=== PATIENT | female | born 1970 | race Caucasian/White ===

== ENCOUNTER → 2018-12-04 20:06 | Outpatient (REF) | payer MEDICARE, MEDICAID, SELFPAY | LOC: LAB 20:06 | PROVIDERS: Visit Provider Physician Assistant Medical | DX: S81.802A Unspecified open wound, left lower leg, initial encounter (principal) | CPT/HCPCS: 87070; 87075; 87077; 87147; 87186; 87205 ==

== ENCOUNTER → 2018-12-20 14:43 | Outpatient (CLI) | payer MEDICARE, MEDICAID, SELFPAY | PROVIDERS: Visit Provider Family Medicine | DX: M25.60 Stiffness of unspecified joint, not elsewhere classified (principal); R21 Rash and other nonspecific skin eruption; R23.1 Pallor; R53.83 Other fatigue | CPT/HCPCS: 36415; 80053; 85025; 85651; 86038; 86140; 86430; 87070; 87075; 87205; 97597 ==

== ENCOUNTER → 2018-12-20 16:18 | Outpatient (CLI) | payer MEDICARE, MEDICAID, SELFPAY ==
[2018-12-20 17:04] LABS: Add Manual Diff / Slide Review NO; Basophils Absolute Auto 100 /uL (0-100); Basophils Percent Auto 0.9 % (0-2); Eosinophils Absolute Auto 500 /uL (0-450); Eosinophils Percent Auto 7.2 % (2-4); Hematocrit 36.7 % (36-46); Hemoglobin 12.3 g/dL (12.0-16.0); Lymphocytes Absolute Auto 1600 /uL (1100-4500); Lymphocytes Percent Auto 23.5 % (25-40); Mean Corpuscular HGB Conc 33.5 % (30-36); Mean Corpuscular Hemoglobin 29.4 PG (26-34); Mean Corpuscular Volume 87.7 fL (80-100); Monocytes Absolute Auto 700 /uL (0-900); Monocytes Percent Auto 10.2 % (3-14); Neutrophils Absolute Auto 4000 /uL (1500-7000); Neutrophils Percent Auto 58.2 % (50-75); Platelet Count 276 X10^3/uL (150-400); Red Blood Cell Count 4.18 X10^6/uL (4.0-5.2); Red Cell Distribution Width 13.5 % (11.6-14.8)
[2018-12-20 17:23] LABS: Alanine Aminotransferase 33 IU/L (9-52); Albumin 4.1 g/dL (3.5-5.0); Albumin Globulin Ratio 1.8 (1.0-2.8); Alkaline Phosphatase 58 U/L (38-126); Aspartate Aminotransferase 23 IU/L (14-36); BUN Creatinine Ratio 21.3 (6-22); Blood Urea Nitrogen 17 mg/dL (7-17); Calcium 9.3 mg/dL (8.4-10.2); Carbon Dioxide 27 mmol/L (22-32); Chloride 102 mmol/L (98-107); Estimated Glomerular Filt Rate > 60.0 mL/min (>60); Globulin 2.3 g/dL (1.7-4.1); Glucose 80 mg/dL (70-100); HEMOLYSIS < 15 (0-50); Potassium 4.1 mmol/L (3.4-5.1); Sodium 137 mmol/L (137-145); Total Protein 6.4 g/dL (6.3-8.2)
[2018-12-20 17:25] LABS: Bilirubin Total < 0.1 mg/dL (0.2-1.3); C-Reactive Protein Quant < 0.5 mg/dL (<1.0); Rheumatoid Factor < 8.6 IU/mL (<12.0)
[2018-12-20 17:40] LABS: Erythrocyte Sedimentation Rate 5 MM/HR (0-20)
[2018-12-22 14:58] LABS: ANA Pattern Speckled; ANA Screen, IFA Positive (Negative); ANA Titer 1:40 titer (<1:40)
== END ==
PROVIDERS: Visit Provider Family Medicine
DX: M25.60 Stiffness of unspecified joint, not elsewhere classified (principal); R21 Rash and other nonspecific skin eruption; R23.1 Pallor; R53.83 Other fatigue
CPT/HCPCS: 36415; 80053; 85025; 85651; 86038; 86140; 86430

== ENCOUNTER → 2018-12-27 13:00 | Outpatient (CLI) | payer MEDICARE, MEDICAID, SELFPAY | PROVIDERS: PCP Family Medicine Geriatric Medicine; Visit Provider Family Medicine | DX: R21 Rash and other nonspecific skin eruption (principal); L03.116 Cellulitis of left lower limb; F15.20 Other stimulant dependence, uncomplicated; R53.83 Other fatigue; F99 Mental disorder, not otherwise specified; R23.1 Pallor; L95.0 Livedoid vasculitis; L20.9 Atopic dermatitis, unspecified | CPT/HCPCS: 99213; 99214 ==

== ENCOUNTER → 2019-01-03 15:25 | Outpatient (CLI) | payer MEDICARE, MEDICAID, SELFPAY | PROVIDERS: PCP Family Medicine Geriatric Medicine; Visit Provider Family Medicine | DX: L03.116 Cellulitis of left lower limb (principal); R21 Rash and other nonspecific skin eruption; F15.20 Other stimulant dependence, uncomplicated; R53.83 Other fatigue; F99 Mental disorder, not otherwise specified | CPT/HCPCS: 11104; 11105; 99213; 99214 ==

== ENCOUNTER → 2019-01-03 15:42 | Outpatient (CLI) | payer MEDICARE, MEDICAID, SELFPAY ==
[2019-01-03 17:59] LABS: RBC Urine None Seen (0-5/HPF); WBC Urine None Seen (0-5/HPF)
[2019-01-03 18:16] LABS: Add Manual Diff / Slide Review NO; Basophils Absolute Auto 100 /uL (0-100); Basophils Percent Auto 0.8 % (0-2); Eosinophils Absolute Auto 0 /uL (0-450); Eosinophils Percent Auto 0.6 % (2-4); Hematocrit 40.1 % (36-46); Hemoglobin 13.6 g/dL (12.0-16.0); Lymphocytes Absolute Auto 1200 /uL (1100-4500); Lymphocytes Percent Auto 16.1 % (25-40); Mean Corpuscular HGB Conc 33.9 % (30-36); Mean Corpuscular Hemoglobin 29.8 PG (26-34); Monocytes Absolute Auto 600 /uL (0-900); Monocytes Percent Auto 7.4 % (3-14); Neutrophils Absolute Auto 5800 /uL (1500-7000); Neutrophils Percent Auto 75.1 % (50-75); Platelet Count 371 X10^3/uL (150-400); Red Blood Cell Count 4.55 X10^6/uL (4.0-5.2); White Blood Cell Count 7.7 X10^3/uL (4.5-11.0)
[2019-01-03 18:20] LABS: Appearance Urine UA CLEAR; Bilirubin Urine UA NEGATIVE (NEGATIVE); Color Urine UA YELLOW; Glucose Urine UA NEGATIVE (Negative); Ketones Urine UA NEGATIVE (NEGATIVE); Leukocyte Esterase Urine UA NEGATIVE (NEGATIVE); Nitrite Urine UA NEGATIVE (Negative); Occult Blood Urine UA NEGATIVE (Negative); Protein Urine UA NEGATIVE (Negative); Specific Gravity Urine UA 1.025 (1.000-1.035); Urobilinogen Urine UA 0.2 E.U./dL (0.2); pH Urine UA 6.5 (4.5-8.0)
[2019-01-03 18:40] LABS: HEMOLYSIS < 15 (0-50); Iron 75 ug/dL (37-170)
[2019-01-03 18:40] LABS: Amorphous Sediment Urine 1+; Bacteria Urine Few (2-10); Culture Indicated Urine Cult Not Indicated; Squamous Epithelial Cell Urine 0-1 /HPF (0-5/HPF)
[2019-01-03 18:52] LABS: Percent Iron Saturation 20 % (15-50); Total Iron Binding Capacity 369 ug/dL (265-497); Transferrin 305 mg/dL (206-381)
[2019-01-03 18:55] LABS: Rheumatoid Factor < 8.6 IU/mL (<12.0)
[2019-01-03 19:12] LABS: Hepatitis B Surface Antigen NEGATIVE s/c (NEGATIVE); Thyroid Stimulating Hormone 0.46 uIU/mL (0.47-4.68)
[2019-01-03 19:17] LABS: Ferritin 19.8 ng/mL (6.27-137)
[2019-01-03 19:30] LABS: Hep C Virus Ab w/Reflex Quant NEGATIVE s/c (NEGATIVE)
[2019-01-04 18:48] LABS: Free T3, Triiodothyronine Free 3.76 pg/mL (2.77-5.27); Free T4, Direct Thyroxine 1.08 ng/dL (0.78-2.19)
[2019-01-08 13:53] LABS: CCP Antibodies IgG/IgA 6
[2019-01-08 22:32] LABS: Albumin 4.4 g/dL (3.8-4.8); Alpha 1 Globulin 0.3 g/dL (0.2-0.3); Alpha 2 Globulin 0.6 g/dL (0.5-0.9); Beta 1 Globulin 0.5 g/dL (0.4-0.6); Gamma Globulin 0.9 g/dL (0.8-1.7)
[2019-01-09 08:18] LABS: B2-Glycoprotein I IgA AB < 9 SAU (< OR = 20); B2-Glycoprotein I IgG AB < 9 SGU (< OR = 20); B2-Glycoprotein I IgM AB 84 SMU (< OR = 20); Cardiolipin Ab IgA < 11 APL; Cardiolipin Ab IgG < 14 GPL; Cardiolipin Ab IgM < 12 MPL; Phos. Serine AB IgM < 25 U/mL
[2019-01-09 19:38] LABS: ANCA Screen Negative (Negative)
[2019-01-14 13:15] LABS: dRVVT Screen 34
== END ==
PROVIDERS: PCP Family Medicine Geriatric Medicine; Visit Provider Family Medicine
DX: R23.1 Pallor (principal); I73.00 Raynaud's syndrome without gangrene; E05.90 Thyrotoxicosis, unspecified without thyrotoxic crisis or storm
CPT/HCPCS: 36415; 81001; 82728; 83540; 83550; 84155; 84165; 84439; 84443; 84481; 85025; 85613; 86021; 86038; 86146; 86147; 86148; 86200; 86430; 86803; 87070; 87075; 87205; 87340

== ENCOUNTER → 2019-01-08 14:11 | Outpatient (CLI) | payer MEDICARE, MEDICAID, SELFPAY ==
[2019-01-12 16:27] LABS: Cold Agglutinins None detected Titer (None detected)
[2019-01-13 20:13] LABS: Cryoglobulin, Qualitative NEGATIVE
== END ==
PROVIDERS: PCP Family Medicine Geriatric Medicine; Visit Provider Family Medicine
DX: R23.1 Pallor (principal); I73.00 Raynaud's syndrome without gangrene
CPT/HCPCS: 82585; 82595; 86157; 87070; 87075; 87077; 87147; 87186; 87205

== ENCOUNTER → 2019-01-08 14:56 | Outpatient (CLI) | payer MEDICARE, MEDICAID, SELFPAY | PROVIDERS: PCP Family Medicine Geriatric Medicine; Visit Provider Family Medicine | DX: L03.116 Cellulitis of left lower limb (principal); R21 Rash and other nonspecific skin eruption; F15.20 Other stimulant dependence, uncomplicated; R53.83 Other fatigue; F99 Mental disorder, not otherwise specified | CPT/HCPCS: 29581; 99213 ==

== ENCOUNTER → 2019-01-10 14:45 | Outpatient (CLI) | payer MEDICARE, MEDICAID, SELFPAY | PROVIDERS: PCP Family Medicine Geriatric Medicine; Visit Provider Family Medicine | DX: L97.821 Non-pressure chronic ulcer of other part of left lower leg limited to breakdown of skin (principal); R21 Rash and other nonspecific skin eruption; L03.116 Cellulitis of left lower limb; B95.61 Methicillin susceptible Staphylococcus aureus infection as the cause of diseases classified elsewhere; F15.20 Other stimulant dependence, uncomplicated; F99 Mental disorder, not otherwise specified | CPT/HCPCS: 29581; 99213 ==

== ENCOUNTER → 2019-01-15 14:17 | Outpatient (CLI) | payer MEDICARE, MEDICAID, SELFPAY | PROVIDERS: PCP Family Medicine Geriatric Medicine; Visit Provider Family Medicine | DX: L30.9 Dermatitis, unspecified (principal); F99 Mental disorder, not otherwise specified; L03.116 Cellulitis of left lower limb; L95.0 Livedoid vasculitis; F15.10 Other stimulant abuse, uncomplicated | CPT/HCPCS: 99213 ==

== ENCOUNTER → 2019-01-22 14:11 | Outpatient (CLI) | payer MEDICARE, MEDICAID, SELFPAY | PROVIDERS: PCP Family Medicine Geriatric Medicine; Visit Provider Family Medicine | DX: L30.9 Dermatitis, unspecified (principal); B95.61 Methicillin susceptible Staphylococcus aureus infection as the cause of diseases classified elsewhere; F15.20 Other stimulant dependence, uncomplicated; F99 Mental disorder, not otherwise specified; R23.1 Pallor | CPT/HCPCS: 99213 ==

== ENCOUNTER 2019-02-14 21:01 | Emergency (ER) | payer MEDICARE, SELFPAY ==
[2019-02-14 21:14] VITALS: BP 147/96; PULSE 122; RESP 22; TEMP 36.9; O2SAT 98
--- NOTE | 2019-02-14 21:29 | ED.EXTPRO ---
HPI - Extremity Problem General Chief complaint: Extremity Problem,Nontraumatic Stated complaint: LEFT LOWER LEG PAIN Time Seen by Provider: 02/14/19 21:29 Source: patient Mode of arrival: ambulatory Limitations: no limitations History of Present Illness HPI Narrative: Patient is a 48-year-old female here for evaluation of skin lesions. Patient states that she has had these skin lesions for several years now. She states she has seen her primary doctor and also wound care and also a air duct mechanic. She states that the account development specialist did multiple autoimmune tests. She states that the air duct mechanic told her that it was ?not a dermatologic problem ?she is also having redness to her left lower extremity however this is not new. She is here because she states that the itching is become very unbearable. She does use a topical steroid cream. She also uses Atarax. She also admits to smoking meth on a daily basis. Related Data Previous Rx's Medication Instructions Recorded fluconazole [Diflucan] 100 mg PO DAILY #3 tab 02/14/19 nystatin 1 applictn TOP TID 7 Days #30 gram 02/14/19 Allergies Allergy/AdvReac Type Severity Reaction Status Date / Time SULFA Allergy Intermediate RASH Uncoded 12/20/17 11:57 Review of Systems Constitutional Denies fever(s) ENT Ears, Nose, Mouth, and Throat: Denies lip swelling and Denies throat swelling Cardiovascular Denies chest pain and Denies dyspnea Respiratory Denies dyspnea Gastrointestinal Gastrointestinal: Denies abdominal pain Musculoskeletal Denies myalgias and Denies arthralgias Integumentary/Breasts Reports bleeding lesions, Reports dry skin, Reports lesions, Reports rash, Reports skin ulcer, Reports sores and Reports wounds Neurologic Denies behavioral changes Psychiatric Denies behavioral changes Hematologic/Lymphatic Denies easy bleeding and Denies easy bruising Allergic/Immunologic Denies urticaria, Denies lip swelling and Denies throat swelling [facility] Medical History Drug abuse (Acute) Social History Smoking Status: Current some day smoker Social History Smoking Status: Current some day smoker Exam Initial Vital Signs Initial Vital Signs: Vital Signs Temperature 98.4 F 02/14/19 21:14 Pulse Rate 122 H 02/14/19 21:14 Respiratory Rate 22 02/14/19 21:14 Blood Pressure 147/96 H 02/14/19 21:14 Pulse Oximetry 98 02/14/19 21:14 Const General: cooperative, well developed, well groomed and No acute distress Orientation: alert, awake and oriented x3 HENMT Head: normal to inspection and normocephalic Resp Effort & Inspection: normal respiratory effort Cardio Rate: regular rate Pulses: dorsalis pedis present on the left Skin Other: Patient with multiple lesions throughout her body in various stages of healing. Located on her back and on her upper extremities on her lower extremities. Patient does have redness of her left lower extremity from her mid foot up to her knee. Does have areas of weeping. This is not warm compared other areas. She has an area on the left inner foot that appears to be a fungal infection. She also has areas in between the lateral toes on left foot that appear to be fungal infections. The areas on her arms and upper back are crusting. There is some small ulcerations. Very small area of erythema surrounding these sites that appear to be inflammation rather than infection. She also has areas of dry skin. Also has multiple areas of excoriation. Neuro General: alert, awake and oriented x3 Cognition: normal cognition Speech: speech normal Gait: normal gait Extrem General: normal to inspection and capillary refill normal Course Vital Signs - 8 hr 02/14/19 21:14 02/14/19 22:23 Temperature 98.4 F Pulse Rate 122 H 90 Respiratory Rate 22 15 Blood Pressure 147/96 H 125/84 Pulse Oximetry 98 100 MDM - Extremity (Nontraumatic) MDM Narrative Medical decision making narrative: Patient is afebrile. The sores that she came to the emergency department today are not new. The redness of her left lower extremity is not new. She is afebrile. I have low suspicion that her symptoms are a cellulitis. She could potentially have a superficial infection however do not feel that oral antibiotics are necessary. Patient states she has been on 2 different course of oral antibiotics for these same symptoms in the past without any improvement. She does have an area what appears to be a fungal infection of her left foot. Patient is asking for nystatin cream and also Diflucan. I do have a strong suspicion that this will not improve any of her symptoms however I do not feel that it would be detrimental to try this medication. She has seen wound care and also Dermatology. I did not evaluate her rheumatologic studies but she was told that everything came back ?okay? she is on Atarax. We did discuss other antihistamine such as Claritin or Vale or Zyrtec. Will have her follow up with her primary provider. She has an appointment with another air duct mechanic the beginning of next month. We also discussed her methamphetamine use. Informed her that this drug does cause symptoms similar to what she is having. She stated that she was going to work hard on not smoking meth. She currently uses it on a daily basis. Patient was given return precautions. She expressed understanding and agreement with plan. Discharge Plan Departure Patient Disposition: Home Clinical Impression: Rash Discharge Date/Time: 02/14/19 22:23 Interventions: ED Discharge Assessment Last Done: 02/14/19 22:23 Instructions: DI for Rash Activity Restrictions/Additional Instructions: You do need to keep all of your scheduled medical appointments. I do recommend that you consider stopping the methamphetamine use. Return to the emergency department for any new or worsening symptoms Prescriptions: New fluconazole [Diflucan] 100 mg tablet 100 mg PO DAILY Qty: 3 RF: 0 nystatin 100,000 unit/gram cream 1 applictn TOP TID 7 Days Qty: 30 RF: 0 Referrals: Christi Hill MD [Primary Care Provider] -
[2019-02-14 22:23] VITALS: BP 125/84; PULSE 90; RESP 15; O2SAT 100
== END 2019-02-14 22:23 | disposition home or self-care (01) ==
PROVIDERS: Emergency Provider Emergency Medicine; Family Provider Family Medicine Geriatric Medicine; PCP Family Medicine Geriatric Medicine
DX: R21 Rash and other nonspecific skin eruption (principal)
CPT/HCPCS: 99282; 99283

== ENCOUNTER → 2019-06-12 15:43 | Outpatient (CLI) | payer MEDICARE, MEDICAID, SELFPAY ==
[2019-06-12 16:03] LABS: Add Manual Diff / Slide Review NO; Basophils Absolute Auto 100 /uL (0-100); Eosinophils Absolute Auto 100 /uL (0-450); Eosinophils Percent Auto 0.8 % (2-4); Hematocrit 40.1 % (36-46); Hemoglobin 13.7 g/dL (12.0-16.0); Lymphocytes Absolute Auto 2600 /uL (1100-4500); Lymphocytes Percent Auto 28.9 % (25-40); Mean Corpuscular HGB Conc 34.2 % (30-36); Mean Corpuscular Hemoglobin 29.4 PG (26-34); Mean Corpuscular Volume 86.1 fL (80-100); Monocytes Absolute Auto 1000 /uL (0-900); Monocytes Percent Auto 11.3 % (3-14); Neutrophils Absolute Auto 5300 /uL (1500-7000); Platelet Count 319 X10^3/uL (150-400); Red Blood Cell Count 4.66 X10^6/uL (4.0-5.2); Red Cell Distribution Width 14.9 % (11.6-14.8); White Blood Cell Count 9.1 X10^3/uL (4.5-11.0)
[2019-06-12 16:43] LABS: Alanine Aminotransferase 43 IU/L (9-52); Albumin 4.8 g/dL (3.5-5.0); Albumin Globulin Ratio 1.7 (1.0-2.8); Alkaline Phosphatase 68 U/L (38-126); Aspartate Aminotransferase 29 IU/L (14-36); Bilirubin Total 0.4 mg/dL (0.2-1.3); Blood Urea Nitrogen 20 mg/dL (7-17); Calcium 10.2 mg/dL (8.4-10.2); Carbon Dioxide 30 mmol/L (22-32); Chloride 100 mmol/L (98-107); Estimated Glomerular Filt Rate > 60.0 mL/min (>60); Globulin 2.8 g/dL (1.7-4.1); Glucose 116 mg/dL (70-100); HEMOLYSIS < 15 (0-50); Potassium 4.3 mmol/L (3.4-5.1); Sodium 139 mmol/L (137-145); Total Protein 7.6 g/dL (6.3-8.2)
== END ==
PROVIDERS: Family Provider Family Medicine Geriatric Medicine; PCP Family Medicine Geriatric Medicine; Visit Provider Physician Assistant
DX: Z79.899 Other long term (current) drug therapy (principal); L30.8 Other specified dermatitis; B95.61 Methicillin susceptible Staphylococcus aureus infection as the cause of diseases classified elsewhere; L28.1 Prurigo nodularis; I87.2 Venous insufficiency (chronic) (peripheral)
CPT/HCPCS: 36415; 80053; 85025

== ENCOUNTER → 2019-08-12 13:56 | Outpatient (CLI) | payer MEDICARE, MEDICAID, SELFPAY ==
[2019-08-12 14:55] LABS: Add Manual Diff / Slide Review NO; Basophils Absolute Auto 100 /uL (0-100); Eosinophils Absolute Auto 100 /uL (0-450); Eosinophils Percent Auto 2.1 % (2-4); Hematocrit 37.7 % (36-46); Hemoglobin 12.6 g/dL (12.0-16.0); Lymphocytes Absolute Auto 1800 /uL (1100-4500); Mean Corpuscular HGB Conc 33.3 % (30-36); Mean Corpuscular Hemoglobin 30.1 PG (26-34); Mean Corpuscular Volume 90.3 fL (80-100); Monocytes Absolute Auto 600 /uL (0-900); Monocytes Percent Auto 10.4 % (3-14); Neutrophils Absolute Auto 3400 /uL (1500-7000); Neutrophils Percent Auto 56.5 % (50-75); Platelet Count 318 X10^3/uL (150-400); Red Blood Cell Count 4.17 X10^6/uL (4.0-5.2); Red Cell Distribution Width 14.4 % (11.6-14.8)
[2019-08-12 15:32] LABS: Alanine Aminotransferase 80 IU/L (<35); Albumin 4.5 g/dL (3.5-5.0); Albumin Globulin Ratio 1.8 (1.0-2.8); Alkaline Phosphatase 68 U/L (38-126); Aspartate Aminotransferase 60 IU/L (14-36); BUN Creatinine Ratio 22.5 (6-22); Bilirubin Total 0.4 mg/dL (0.2-1.3); Blood Urea Nitrogen 18 mg/dL (7-17); Calcium 9.3 mg/dL (8.4-10.2); Carbon Dioxide 29 mmol/L (22-32); Chloride 102 mmol/L (98-107); Estimated Glomerular Filt Rate > 60.0 mL/min (>60); Globulin 2.5 g/dL (1.7-4.1); Glucose 90 mg/dL (70-100); HEMOLYSIS < 15 (0-50); Potassium 4.3 mmol/L (3.4-5.1); Sodium 139 mmol/L (137-145)
[2019-08-12 16:36] LABS: Folate 18.3 ng/mL (2.76-20.0)
== END ==
PROVIDERS: Family Provider Family Medicine Geriatric Medicine; PCP Family Medicine Geriatric Medicine; Visit Provider Physician Assistant
DX: L57.8 Other skin changes due to chronic exposure to nonionizing radiation (principal); X32.XXXA Exposure to sunlight, initial encounter; L30.8 Other specified dermatitis; I87.2 Venous insufficiency (chronic) (peripheral)
CPT/HCPCS: 36415; 80053; 82746; 85025

== ENCOUNTER → 2019-11-20 12:30 | Outpatient (CLI) | payer MEDICARE, MEDICAID, SELFPAY ==
--- NOTE | 2019-11-20 | DI.MRI.S_ITS ---
PROCEDURE: MR LUMBAR SPINE WO CON INDICATIONS: Low back pain TECHNIQUE: Noncontrast sagittal T1 spin echo and T2 fast echo, sagittal STIR, axial T1 and T2 fast spin echo through the lumbar spine. In cases with scoliosis, additional coronal T2 fast spin echo may be performed. COMPARISON: [facility], MR, L-SPINE WITHOUT CONTRAST, 08/16/2013, 13:46. FINDINGS: Image quality: Excellent. Alignment and Curvature: Trace degenerative retrolisthesis of L5 on S1. Grade one anterolisthesis of L4 on L5 measures 8 mm. On the previous study it measured 4 mm. Bone Marrow: Marrow is of normal overall signal. No acute vertebral body compression fractures. Spinal Cord: Conus medullaris terminates at the T12-L1 level. Visualized cord demonstrates normal signal and size. Paraspinous Soft Tissues: No paravertebral masses. T12-L1: Normal appearance. L1-L2: Mild disc bulge. Mild facet hypertrophy. No canal stenosis or foraminal stenosis. L2-L3: Mild disc bulge. Facet and ligament hypertrophy. Development of mild canal stenosis. No foraminal stenosis. L3-L4: Disc bulge. Facet and ligament hypertrophy. Development of moderate canal stenosis. L4-L5: Interval increase in anterolisthesis of L4 on L5. Diffuse disc bulge. Marked facet hypertrophy. Significant progression of canal stenosis, now marked. Mild to moderate bilateral foraminal narrowing. L5-S1: The disc bulge. Facet hypertrophy. No significant canal stenosis. Mild bilateral foraminal stenosis. IMPRESSION: 1. Significant interval progression of multilevel canal stenosis. Canal stenosis is now marked at L4-L5, mild at L2-L3, and moderate at L3-L4. Canal stenosis has progressed at each of these levels. 2. Multilevel facet arthropathy, most significant at L4-L5. Dictated by: Francis Castañeda M.D. on 11/20/2019 at 13:45 Approved by: Francis Castañeda M.D. on 11/20/2019 at 13:56
== END ==
PROVIDERS: Family Provider Family Medicine Geriatric Medicine; Referring Provider Orthopaedic Surgery; Visit Provider Orthopaedic Surgery
DX: M54.5 Low back pain (principal); M48.061 Spinal stenosis, lumbar region without neurogenic claudication; M47.816 Spondylosis without myelopathy or radiculopathy, lumbar region
CPT/HCPCS: 72148

== ENCOUNTER → 2020-09-16 15:37 | Outpatient (CLI) | payer MEDICARE, MEDICAID, SELFPAY ==
--- NOTE | 2020-09-16 15:41 | DI.CT.S_ITS ---
PROCEDURE: CT LUMBAR SPINE WO CON INDICATIONS: Spinal stenosis, lumbar region TECHNIQUE: Noncontrast 3 mm thick sections acquired from the T12 level to the sacrum. Sagittal and coronal reformats were constructed. For radiation dose reduction, the following was used: automated exposure control. COMPARISON: [facility], MR, L-SPINE WITHOUT CONTRAST, 08/16/2013, 13:46. [facility], MR, MR LUMBAR SPINE WO CON, 11/20/2019, 12:51. [facility], CR, XR LUMBAR SPINE 2 OR 3 VIEWS, 11/08/2019, 11:51. [facility], CR, SPINE LUMB 2 OR 3VW, 11/19/2013, 9:57. [facility], RG, SPINE LUMB MIN 4VW, 11/16/2012, 14:43. [facility], RG, SPINE LUMB MIN 4VW, 07/26/2013, 14:05. FINDINGS: Image quality: Excellent. Bones: No acute vertebral body compression fractures. No suspicious lytic or blastic bony lesions. Central spinal caliber is of normal overall caliber. Mild dextroconvex scoliotic curvature is seen. Mild grade 1 anterolisthesis is seen at the L4-L5 level. No associated pars defects are seen. T12-L1: Normal. L1-L2: Normal. L2-L3: Mild loss of disc height is seen. Mild generalized disc bulge is seen. There is mild right-sided and minimal left-sided neural foraminal narrowing seen. Mild central canal narrowing is seen. L3-L4: There is mild loss of disc height. Mild to moderate disc bulge is seen, with a central disc protrusion. Mild to moderate facet hypertrophy can be seen. Mild bilateral neural foraminal narrowing is seen. Moderate to severe central canal narrowing can be seen. L4-L5: At least moderate loss of disc height is seen. Moderate disc bulge is seen, with disc uncovering. Prominent facet hypertrophy is seen at this level. There is moderate bilateral neural foraminal narrowing seen, left worse than right. Moderate to severe central canal narrowing is seen. L5-S1: Moderate to severe loss of disc height is seen. Endplate irregularity and sclerosis can be seen. Vacuum disc phenomenon is seen at this level. Moderate disc bulge is seen, with a mild central disc protrusion. There is at least moderate bilateral neural foraminal narrowing seen. No significant central canal narrowing is seen. Soft tissues: No retroperitoneal masses or hematomas. Visualized aorta is normal in caliber. IMPRESSION: Multiple levels of lumbar spine degenerative change are seen, which are worst at the L4-L5 and L5-S1 levels. Dictated by: Tanner Mays M.D. on 09/16/2020 at 16:26 Approved by: Tanner Mays M.D. on 09/16/2020 at 16:30
== END ==
PROVIDERS: Family Provider Family Medicine Geriatric Medicine; PCP Physician Assistant Medical; Referring Provider Student in an Organized Health Care Education/Training Program; Visit Provider Student in an Organized Health Care Education/Training Program
DX: M48.062 Spinal stenosis, lumbar region with neurogenic claudication (principal); M43.16 Spondylolisthesis, lumbar region; M47.816 Spondylosis without myelopathy or radiculopathy, lumbar region; M47.817 Spondylosis without myelopathy or radiculopathy, lumbosacral region
CPT/HCPCS: 72131

== ENCOUNTER → 2023-01-27 15:35 | Outpatient (CLI) | payer MEDICARE, MEDICAID, SELFPAY ==
--- NOTE | 2023-01-27 | DI.MRI.S_ITS ---
PROCEDURE: MR KNEE RT WO CON INDICATIONS: SPRAIN OF RIGHT KNEE TECHNIQUE: Noncontrast sagittal PD fast spin echo and T2 fast spin echo with fat saturation, sagittal 3-D FLASH with fat saturation; coronal T1 spin echo and PD fast spin echo with fat saturation, and axial PD fast spin echo with fat saturation through the knee. COMPARISON: None. FINDINGS: Image quality: Diagnostic. Anterior Cruciate Ligament: Intact. Posterior Cruciate Ligament: Intact. Medial Collateral Ligament: Intact. Lateral Collateral Ligament: Intact. Medial Meniscus: There is complex tearing of the medial meniscus including a shallow radial component at the posterior horn and an inferiorly displaced flap component at the meniscal body extending into the medial tibial gutter. Lateral Meniscus: Intact. Medial and Lateral Tendons: Small amount of fluid along the medial hamstring tendons is most likely related to popliteal cyst rupture. The semimembranosus tendon insertions and meniscocapsular junction appear intact. Visualized portions of the pes anserinus tendons appear normal. No abnormal bursal fluid. The long and short heads of the biceps femoris tendon appear intact. The popliteus tendon appears intact. No signs of posterolateral corner injury. Iliotibial band appears normal. Anterior Structures: The quadriceps and patellar tendons appear intact. No patellar subluxation. No femoral trochlear dysplasia or ventral trochlear prominence. Fluid is seen within the infrapatellar fat pad, likely related to [place] joint fluid. Bones: No acute trabecular bone injury or fracture. Medial Femorotibial Cartilage: Mild surface cartilage irregularity in the weight-bearing portion of the medial compartment. Lateral Femorotibial Cartilage: No focal cartilage defect. Patellofemoral Cartilage: No focal cartilage defect. Soft Tissues: Moderate joint effusion. A 3 mm loose body is seen posterior to the posterior root attachment of the medial meniscus. A 4 mm probable loose body is seen anterior to the intercondylar notch in the region of the infrapatellar fat pad. A moderate medial popliteal cyst is seen with surrounding soft tissue edema and fluid that is most likely secondary to recent cyst rupture. The musculature surrounding the knee is normal in bulk. IMPRESSION: 1. Complex tearing of the posterior horn and body of the medial meniscus with a shallow radial component at the posterior horn and a small inferiorly displaced meniscal flap component at the meniscal body extending into the medial tibial gutter. 2. Moderate medial popliteal cyst with prominent surrounding soft tissue edema and fluid, which is most likely related to recent cyst rupture. 3. Cruciate and collateral ligaments are intact. No acute trabecular bone injury. 4. Mild grade 2 chondromalacia in the medial femorotibial compartment. 5. Moderate joint effusion. Approved by: Bayron Franklin M.D. on 01/30/2023 at 8:46
== END ==
PROVIDERS: Family Provider Family Medicine Geriatric Medicine; PCP Physician Assistant Medical; Referring Provider Physician Assistant Medical; Visit Provider Physician Assistant Medical
DX: S83.91XA Sprain of unspecified site of right knee, initial encounter (principal); S83.281A Other tear of lateral meniscus, current injury, right knee, initial encounter; M71.21 Synovial cyst of popliteal space [Baker], right knee; M94.261 Chondromalacia, right knee; M25.461 Effusion, right knee
CPT/HCPCS: 73721

== ENCOUNTER 2023-03-16 12:17 | Day surgery (SDC) | payer MEDICARE, MEDICAID, SELFPAY ==
[2023-03-08 13:47] VITALS: BMI 29.2
[2023-03-16] VITALS (9 sets, daily range): BP systolic 99–126; BP diastolic 65–89; PULSE 58–86; RESP 9–23; TEMP 36.1–36.5; O2SAT 92–99; BMI 29.2
[2023-03-16] MEDS: LACTATED RINGERS 1,000 ML 42 ML IV (13:03)
--- NOTE | 2023-03-16 13:23 | PM.PREOP ---
Pre-operative Note Interval Note History & Physical reviewed/Exam performed by Physician: Yes Changes to H&P: No
[2023-03-16] MEDS: CEFAZOLIN 2 GM/100 ML PREMIX 100 ML IV (14:05)
--- NOTE | 2023-03-16 14:11 | SUR.OPER ---
Supine on padded OR bed, head on pillow, arms secured on padded arm boards at <90 degrees abduction, legs uncrossed, nathe knee positioner and lateral post used on operative leg, safety belt at abdomen, tape over blanket over non operative lower leg.
[2023-03-16] MEDS: BUPIVACAINE 0.5% W/ EPI (PF) 30 ML VIAL 20 ML INJ (14:23)
--- NOTE | 2023-03-16 14:47 | PM.OP.1 ---
Operative Date/Time/Diagnoses Date of procedure: 03/16/23 Time of procedure: 13:40 Pre-op diagnosis: Right medial meniscus tear, loose body right knee Post-op diagnosis: other (Right medial meniscus tear, plica right knee) Procedure & Clinicians Procedure: Arthroscopic partial medial meniscectomy, right knee CPT code 49662 Arthroscopic excision plica right knee Same procedure as scheduled: Yes Indications: The patient is a 52-year-old female that has had persistent right knee pain for greater than 6 months she is failed Tylenol, ibuprofen and narcotic pain medication. She is been unable to work due to persistent pain and has endorsed catching and locking. She is also failed bracing and extensive conservative treatment. She had minimal degenerative changes on MRI and suspicion for medial meniscus tear and possible loose bodies. She is indicated for arthroscopic partial meniscectomy removal loose bodies and debridement as indicated. The risks and benefits of the procedure have been discussed with the patient and given the opportunity to ask questions. The risks of surgery include but are not limited to infection, malunion, nonunion, persistence of pain, damage to nerves and blood vessels, posttraumatic arthritis, DVT, PE, cardiopulmonary complications and . The patient expressed a thorough understanding of the risks and benefits of surgery and has elected to proceed. Consent was signed. Surgeon: Ruthann Reyes Click Yes if Unassisted: Yes Anesthesia Type: General and Local Operative Notes Findings: Suprapatellar pouch normal Anterior compartment normal Medial gutter partially visualized anterior meniscal tear Lateral gutter normal Intercondylar notch normal visualized ACL and partially visualized PCL Anterior fat pad and anterior medial compartment plica, debrided Medial compartment degenerative meniscal tear posterior and anterior debrided to stable base using combination of biters and Yanci. Grade 2 3 cartilage changes tibial plateau femoral condyle (focal areas of grade 3) Lateral compartment normal cartilage femoral condyle tibial plateau, normal meniscus Closure Type: primary Specimen(s): none sent Estimated Blood Loss (mL): 5 Blood products transfused: none Tourniquet time (min): 27 Procedure in detail: Patient was seen in the preoperative area the site of surgery marked informed consent confirmed patient brought to operating room placed supine on the operative table. General anesthetic was administered. The right lower extremity was prepped and draped in standard sterile fashion. A formal time-out procedure was performed confirming the patient's side and site of surgery administration of appropriate preoperative antibiotic. All were in agreement. Esmarch was used for exsanguination tourniquet raised on the thigh to 250 mmHg. The standard lateral portal site was established with a john in the skin and dilation and then insertion of the trocar and arthroscope into the suprapatellar pouch. Diagnostic arthroscopy was carried out in the usual fashion with the findings above. Then the medial portal was established under direct visualization and the shaver introduced into the medial portal the combination of Yanci and biters the medial meniscus tear was debrided back to a stable base and the anterior plica was debrided. No loose bodies were found. Once we are happy with the debridement. The instruments were removed fluid was removed from the knee and the portal sites were closed with 3-0 nylon suture. Tourniquet was released hemostasis was achieved. Then the knee was injected with 20 cc of 0.25% Marcaine with epinephrine. Dressings were placed with Xeroform gauze and Webril and an Nghia wrap. Patient was woken from anesthesia and taken to the recovery room in good condition. Complications: none Post-operative Condition: stable Disposition: PACU Plan for aftercare: Weightbear as tolerated. Range of motion as tolerated. May remove dressing in 2-[address] Band-Aids over the suture sites. May shower but no soaking of incision. Some drainage especially on the gauze. This will dissipate over time. Take aspirin 325 daily for DVT prophylaxis until walking without crutches or assistive devices
[2023-03-16] MEDS: KETOROLAC 30 MG/ML VIAL IV (15:01)
== END 2023-03-16 16:12 | disposition home or self-care (01) ==
PROVIDERS: Family Provider Family Medicine Geriatric Medicine; PCP Physician Assistant Medical; Referring Provider Orthopaedic Surgery Foot and Ankle Surgery; Visit Provider Orthopaedic Surgery Foot and Ankle Surgery
PROC: (CPT 29870; principal; 2023-03-16 14:15)
DX: S83.241A Other tear of medial meniscus, current injury, right knee, initial encounter (principal); M67.51 Plica syndrome, right knee; I10 Essential (primary) hypertension; F41.8 Other specified anxiety disorders; Z87.891 Personal history of nicotine dependence
CPT/HCPCS: 29881; J0690; J1170; J1885; J2405; J2704; J3010; J3490

== ENCOUNTER → 2024-01-10 11:43 | Outpatient (CLI) | payer MEDICARE, MEDICAID, SELFPAY ==
--- NOTE | 2024-01-10 11:45 | DI.CT.S_ITS ---
PROCEDURE: CT LUMBAR SPINE WO CON INDICATIONS: Spondylolisthesis, lumbar region TECHNIQUE: Noncontrast 3 mm thick sections acquired from the T12 level to the sacrum. Sagittal and coronal reformats were constructed. For radiation dose reduction, the following was used: automated exposure control. COMPARISON: [facility], CT, CT LUMBAR SPINE WO CON, 09/16/2020, 15:42. FINDINGS: Image quality: Excellent. Bones: Stable 6 mm anterolisthesis of L4 on L5. No acute vertebral body compression fractures. No suspicious lytic or blastic bony lesions. No pars defects. Interval posterior and interbody surgical fusion of L5-S1. T12-L1: Mild disc height loss. L1-L2: Mild disc height loss. L2-L3: Mild disc height loss with broad-based disc bulge. Bilateral facet hypertrophy. Bile dural favorable dairy. L3-L4: Broad-based disc bulge, facet hypertrophy. Moderate spinal canal narrowing. [id number] bilateral neural foraminal narrowing. L4-L5: Surgical changes. Mild bilateral neural foraminal narrowing. L5-S1: Severe disc height loss, broad-based disc bulge and bilateral facet hypertrophy. Mild bilateral neural foraminal narrowing. Overall, findings have slightly progressed since 2020. Soft tissues: No retroperitoneal masses or hematomas. Visualized aorta is normal in caliber. IMPRESSION: Interval posterior and interbody surgical fusion at L4-5. Stable grade 1 anterolisthesis at this level. Progressive degenerative disc disease and facet arthrosis. Of note, there is moderate spinal canal narrowing at L3-4 and up to [id number] neural foraminal narrowing at L3-4. Dictated by: Festus Don M.D. on 01/10/2024 at 14:50 Approved by: Festus Don M.D. on 01/10/2024 at 14:55
== END ==
PROVIDERS: Family Provider Family Medicine Geriatric Medicine; PCP Physician Assistant Medical; Referring Provider Student in an Organized Health Care Education/Training Program; Visit Provider Student in an Organized Health Care Education/Training Program
DX: M51.36 Other intervertebral disc degeneration, lumbar region (principal); M51.37 Other intervertebral disc degeneration, lumbosacral region; M47.816 Spondylosis without myelopathy or radiculopathy, lumbar region; M47.817 Spondylosis without myelopathy or radiculopathy, lumbosacral region; M48.062 Spinal stenosis, lumbar region with neurogenic claudication; M48.07 Spinal stenosis, lumbosacral region; M43.16 Spondylolisthesis, lumbar region; Z98.1 Arthrodesis status
CPT/HCPCS: 72131